=== PATIENT | male | born 2000 | race Caucasian/White ===

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

== ENCOUNTER → 2022-08-24 | Outpatient (CLI) | payer OTHER, SELFPAY ==
[2022-08-24 17:47] LABS: Basophil# 0.01 X10^3/uL; Basophil% 0.1 % (0-1); Eosinophil# 0.05 X10^3/uL; Eosinophils% 0.6 % (0-5); Hematocrit 42.7 % (40-54); Hemoglobin 13.7 g/dL (13.0-16.5); Lymphocyte % 12.2 % (19-41); Mean Corp Hgb Conc 32.1 g/dL (32-36); Mean Corpuscular Hgb 29.5 pg (27.0-32.0); Mean Corpuscular Volume 91.8 fL (80-94); Mean Platelet Vol. 11.2 fl (6.2-12.0); Monocyte% 13.5 % (0-10); NRBC Flagged by Analyzer 0 % (0-5); Neutrophil # 5.98 X10^3/uL (2.7-7.7); Neutrophil % 73.2 % (47-70); Platelet Count 155 K/mm3 (150-450); RBC Distribution Width CV 12.4 % (11.6-14.6); RBC Distribution Width SD 41.9 fl (35.1-43.9); Red Blood Count 4.65 M/mm3 (4.6-6.2); White Blood Count 8.2 K/mm3 (4.4-11.0)
[2022-08-24 18:23] LABS: ALB/GLOB Ratio 0.8 RATIO (0.9-2.4); AST(SGOT) 14 U/L (15-37); Alanine Aminotransfer ALT/SGPT 26 U/L (16-61); Albumin, Serum 3.4 g/dL (3.2-5.0); Alkaline Phosphatase 82 U/L (45-117); Anion Gap 5 (5-15); BUN 9 mg/dL (7-18); BUN/Creat Ratio 7.8 RATIO (10-20); Calcium,Total 9.3 mg/dL (8.5-10.1); Chloride 107 mmol/L (98-107); Creatinine, Serum 1.15 mg/dL (0.70-1.30); EST Glomerular Filtration Rate 84 mL/min (>60); Est Glom Filt Rate - Afr Amer 102 mL/min (>60); Globulin 4.5 g/dL (2.2-4.2); Glucose 92 mg/dL (74-106); Potassium 3.7 mmol/L (3.5-5.1); Protein, Total 7.9 g/dL (6.4-8.2); Sodium Level 139 mmol/L (136-145)
[2022-08-29 16:09] LABS: EBV Acute VCA IgM < 36.0 U/mL (0.0-35.9); Lyme IgG P18 Ab Absent (.); Lyme IgG P23 Ab Absent (.); Lyme IgG P28 Ab Absent (.); Lyme IgG P30 Ab Absent (.); Lyme IgG P39 Ab Absent (.); Lyme IgG P41 Ab Present (.); Lyme IgG P45 Ab Absent (.); Lyme IgG P58 Ab Absent (.); Lyme IgG P66 Ab Absent (.); Lyme IgG P93 Ab Absent (.); Lyme IgG WB Interpretation Negative (.); Lyme IgM P23 Ab Absent (.); Lyme IgM P39 Ab Absent (.); Lyme IgM P41 Ab Absent (.); Lyme IgM WB Interpretation Negative (.); West Nile Virus, IgG Positive (Negative); West Nile Virus, IgM Negative (Negative)
== END | disposition home or self-care (01) ==
LOC: BFHLAB 16:21
PROVIDERS: PCP Family Medicine; Visit Provider Family Medicine
DX: R50.9 Fever, unspecified (principal); R51.9 Headache, unspecified
CPT/HCPCS: 36415; 80053; 85025; 86617; 86665; 86788; 86789

== ENCOUNTER → 2024-06-26 | Outpatient (CLI) | payer OTHER, SELFPAY ==
--- NOTE | 2024-06-26 09:42 | MRI_ITS ---
EXAM: MRI right knee. CLINICAL HISTORY: Posterior right knee pain with swelling COMPARISON: None TECHNIQUE: Multi planar multi sequence MR images of the right knee without contrast FINDINGS: No evidence of fracture or dislocation. Small joint effusion suprapatellar bursa. Trace fluid is seen in posterior to the posterior capsule and trace fluid surrounds the medial head of the gastrocnemius. Question if this might represent a ruptured popliteal cyst with dissection of the fascia of the medial head of the gastrocnemius. Muscles and their tendinous insertions are unremarkable. The posterolateral corner is intact. Anterior and posterior cruciate ligaments as well as medial and lateral collateral ligaments are intact. Medial and lateral patellar retinacula are intact. The quadriceps and patellar tendons are unremarkable. Medial and lateral menisci are intact. No abnormal bone marrow signal. The cutaneous and subcutaneous tissues are otherwise unremarkable. MRI/Lower Ext Joint Only (Routine) IMPRESSION: Trace fluid signal posterior capsule and outside the posterior capsule with tra ce fluid surrounding medial head of gastrocnemius. Question if this may represent a ruptured popliteal cyst with dissection of the fascial planes. Small joint effusion suprapatellar bursa. No internal derangement otherwise identified. Reading [facility]
== END | disposition home or self-care (01) ==
PROVIDERS: PCP Family Medicine; Referring Provider Physician Assistant; Visit Provider Physician Assistant
DX: S83.8X1A Sprain of other specified parts of right knee, initial encounter (principal); X58.XXXA Exposure to other specified factors, initial encounter
CPT/HCPCS: 73721